=== PATIENT | female | born 1975 | race Caucasian/White ===

== ENCOUNTER → 2019-08-22 | Outpatient (CLI) | payer OTHER ==
[~2019-08-22] MED LIST: LEXAPRO20 MG PO; MOTRIN 800800 MG/TAB PO; NORCO 325 MG-51 TAB PO; PERCOCET 325 MG1 TA2 PO; PROVERA 2.5MG2.5 MG
== END ==
LOC: MC.RAD 13:30
DX: Z12.31 Encounter for screening mammogram for malignant neoplasm of breast (principal)

== ENCOUNTER 2023-12-20 22:54 | Emergency (ER) | payer OTHER ==
[~2023-12-20] VITALS: Ht 172.7 cm; Wt 138.6 kg
[2023-12-20 23:10] VITALS: TEMP 98.5
[2023-12-20] MEDS ORDERED: Naproxen 250 MG TAB PO ONE (23:30)
[2023-12-20 23:49] VITALS: BP 128/84; PULSE 74
== END 2023-12-20 23:56 | disposition home or self-care (01) ==
LOC: COL.ER 22:54
DX: S80.11XA Contusion of right lower leg, initial encounter (principal); X58.XXXA Exposure to other specified factors, initial encounter; Y93.67 Activity, basketball